=== PATIENT | male | born 1950 | race Hispanic/Latino ===

== ENCOUNTER → 2023-08-29 | Outpatient (CLI) | payer MEDICARE, OTHER ==
[2023-08-29 14:34] LABS: CREATININE 1.4 mg/dL (0.5-1.3)
== END | disposition home or self-care (01) ==
LOC: LAB 13:30
PROVIDERS: ATTEND Student in an Organized Health Care Education/Training Program
DX: C67.9 Malignant neoplasm of bladder, unspecified (principal)
CPT/HCPCS: 36415; 82565; 84520

== ENCOUNTER → 2023-09-06 | Outpatient (CLI) | payer MEDICARE, OTHER ==
[~2023-09-06] MED LIST: IOHEXOL 350 MG/ML 100ML INFUS..BTL IV ONE
== END | disposition home or self-care (01) ==
LOC: RAH 08:03
PROVIDERS: ATTEND Student in an Organized Health Care Education/Training Program
DX: C67.9 Malignant neoplasm of bladder, unspecified (principal); I25.10 Atherosclerotic heart disease of native coronary artery without angina pectoris; M47.815 Spondylosis without myelopathy or radiculopathy, thoracolumbar region; K57.90 Diverticulosis of intestine, part unspecified, without perforation or abscess without bleeding; Z90.5 Acquired absence of kidney; Z98.890 Other specified postprocedural states
CPT/HCPCS: 71260; 74177; Q9967